=== PATIENT | female | born 2000 | race African-American/Black ===

== ENCOUNTER 2022-10-17 20:31 | Emergency (ER) | payer OTHER ==
[~2022-10-17] VITALS: Ht 172.7 cm; Wt 56.7 kg
--- NOTE | 2022-10-17 20:43 | NUR ---
Dr. Dumont evaluating patient at bedside. MSE in progress.
--- NOTE | 2022-10-17 20:54 | NUR ---
Lab at bedside.
[2022-10-17] MEDS ORDERED: ACETAMINOPHEN/CODEINE 300-30 MG TABLET ONE (20:57)
--- NOTE | 2022-10-17 20:59 | NUR ---
Chest xray at bedside.
[2022-10-17] MEDS ORDERED: ACETAMINOPHEN/CODEINE 300-30 MG TABLET PO ONE (21:00)
[2022-10-17 21:04] LABS: MEAN CORPUSCULAR HEMOGLOBIN 21.5 uug (24.7-32.8); PLATELET COUNT (AUTO) 329 K/uL (179-408)
[2022-10-17 21:19] LABS: CARBON DIOXIDE 26 mmol/L (21-32); CHLORIDE 105 mmol/L (98-107); CREATININE 0.8 mg/dL (0.6-1.3); GLUCOSE 79 mg/dL (74-106); POTASSIUM 4.3 mmol/L (3.5-5.1); UREA NITROGEN, BLOOD 8 mg/dL (7-18)
[2022-10-17 21:36] LABS: IRON, SERUM 46 ug/dL (50-175)
[2022-10-17] MEDS ORDERED: FERR325T28 PO (22:20)
[2022-10-17] MEDS ORDERED: ACET1TAB23 PO (22:20)
--- NOTE | 2022-10-17 22:35 | NUR ---
Patient discharged to home in stable condition. Written and verbal after care instructions given. Patient verbalizes understanding of instructions. Stressed follow up or return to ER for worsening s/s. Patient given printed medication prescriptions. Instructed patient not to drive.
[2022-10-17 22:36] VITALS: BP 135/66
== END 2022-10-17 22:36 | disposition home or self-care (01) ==
LOC: ER 20:33
DX: D50.9 Iron deficiency anemia, unspecified (principal); R09.1 Pleurisy; B97.89 Other viral agents as the cause of diseases classified elsewhere; Z79.899 Other long term (current) drug therapy
CPT/HCPCS: 36415; 71045; 83550; 84484; 85025; 93005; A4663